=== PATIENT | male | born 1945 | race Caucasian/White ===

== ENCOUNTER 2024-04-24 13:56 | Emergency (ER) | payer OTHER ==
[~2024-04-24 13:56] MED LIST: Iopamidol 370 76% 100 ML VIAL ONE
[2024-04-24] MEDS ORDERED: Ipratropium/Albuterol 3 ML NEB ONE ×2 (14:41→16:16)
[2024-04-24] MEDS ORDERED: Sodium Chloride 0.9% 1,000 ML ONE (14:57)
[2024-04-24 15:07] LABS: ALT (SGPT) 27 U/L (8-55); AST (SGOT) 22 U/L (5-34); Albumin 3.5 g/dL (3.4-4.8); Alkaline Phosphatase 90 U/L (40-110); Anion Gap 15 mmol/L (10-20); BUN (Urea Nitrogen) 23 mg/dL (8.4-25.7); Bilirubin, Total 2.8 mg/dL (0.2-1.2); Calc. Creatinine Clearance 0 mL/min (70-130); Carbon Dioxide 31 mmol/L (23-31); Chloride 93 mmol/L (98-107); Estimated GFR 59; Globulin 3.3 g/dL (2.4-3.5); Glucose 119 mg/dL (83-110); Potassium 4.1 mmol/L (3.5-5.1); Protein, Total 6.8 g/dL (5.8-8.1); Sodium 135 mmol/L (136-145)
[2024-04-24 15:33] LABS: Hematocrit 48.4 % (42.0-52.0); Hemoglobin 15.4 g/dL (14.0-18.0); Mean Corpuscular HGB CONC 31.7 g/dL (32.0-36.0); Mean Corpuscular Hemoglobin 28.4 pg (27.0-31.0); Mean Corpuscular Volume 89.4 fl (78.0-98.0); Mean Platelet Volume 15.8 fL (7.4-10.4); Platelet Count 42 10x3/uL (130-400); RBC Distribution Width 13.5 % (11.5-14.5); Red Blood Cell (RBC) Count 5.42 mill/uL (4.70-6.10)
[2024-04-24 15:43] LABS: Base Excess-Venous 9.1 mmol/L (-2.0 to 3.0); Bicarbonate (HCO3v) 38.1 mmol/L (22.0-28.0); CO2 Tension (PvCO2) 67.5 mmHg (42.0-51.0); Calcium, Ionized 1.11 mmol/L (1.15-1.33); Chloride 93 mmol/L (98-107); Hemoglobin - Calc 16.9 g/dL (14.0-18.0); Potassium 4.2 mmol/L (3.5-5.1); Sodium 137 mmol/L (138-145); T. Carbon Dioxide 40.1 mmol/L (22.0-28.0); vO2 Saturation-calc 82.4 % (60.0-85.0)
[2024-04-24 15:48] LABS: White Blood Cell (WBC) Count 29.5 10x3/uL (4.8-10.8)
[2024-04-24] MEDS ORDERED: Sodium Chloride 0.9% 100 ML ONE (15:52)
[2024-04-24] MEDS ORDERED: Cefepime 2 GM VIAL ONE (15:52)
[2024-04-24 15:53] LABS: MDiff Complete? YES
[2024-04-24 16:35] LABS: Band 18 % (5-11); Lymphocytes 5 % (21-51); Monocytes 1 % (0-10); Neutrophil 76 % (42-75)
[2024-04-24] MEDS ORDERED: LevoFLOXacin 750 mg/D5W 150 ml Premix Bag ONE (16:36)
[2024-04-24 16:37] LABS: Platelet Adequacy Comment PLT clumps seen-ADEQ; Platelet Clumps MODERATE; RBC Morph Comment Within Normal Limits
[2024-04-24] MEDS ORDERED: dilTIAZem 60 MG TAB ONE (16:55)
[2024-04-24 17:05] LABS: Bilirubin Moderate (Negative); Blood, Urine Negative (Negative); Clarity Clear (Clear); Glucose, Urine (Dipstick) Negative (Negative); Ketone, Urine Trace mg/dL (Negative); Leukocyte Negative (Negative); Nitrite Positive (Negative); Protein, Urine (Dipstick) 30 mg/dL (Neg-Trace); Specific Gravity, Urine 1.015 (1.005-1.030); pH, Urine 5.5 (5.0-9.0)
[2024-04-24 17:24] LABS: CAUTI Indications for Culture Fever or rigors
[2024-04-24 17:25] LABS: Bacteria/HPF 2+ HPF (None Seen); Mucous/LPF 2+ LPF (<2+); Squamous Epithelial 0-3 HPF (0-3); Transitional Epithelial 0-3 HPF (None Seen)
[2024-04-24 17:26] LABS: Urine Culture Reflex No No
[2024-04-24 17:46] LABS: Base Excess-Venous 4.7 mmol/L (-2.0 to 3.0); Bicarbonate (HCO3v) 31.9 mmol/L (22.0-28.0); CO2 Tension (PvCO2) 56.2 mmHg (42.0-51.0); Calcium, Ionized 1.05 mmol/L (1.15-1.33); Chloride 94 mmol/L (98-107); Hemoglobin - Calc 15.1 g/dL (14.0-18.0); Potassium 4.1 mmol/L (3.5-5.1); Sodium 134 mmol/L (138-145); T. Carbon Dioxide 33.6 mmol/L (22.0-28.0); vO2 Saturation-calc 84.5 % (60.0-85.0)
== END 2024-04-24 21:15 | disposition short-term general hospital (02) ==
LOC: NAV ERS 13:56
DX: J18.9 Pneumonia, unspecified organism (principal); J44.1 Chronic obstructive pulmonary disease with (acute) exacerbation; J10.1 Influenza due to other identified influenza virus with other respiratory manifestations; M79.89 Other specified soft tissue disorders; R91.8 Other nonspecific abnormal finding of lung field; E11.9 Type 2 diabetes mellitus without complications; E78.00 Pure hypercholesterolemia, unspecified; I11.0 Hypertensive heart disease with heart failure; I50.9 Heart failure, unspecified; I48.91 Unspecified atrial fibrillation; Z79.01 Long term (current) use of anticoagulants; Z79.899 Other long term (current) drug therapy
CPT/HCPCS: 36415; 71045; 71275; 80053; 81001; 82330; 82803; 83605; 83880; 85025; 85379; 87040; 87070; 87077; 87149; 87205; 87428; 93005; 94640; 96361; 96365; 96367; J0692; J1956; J7030; J7620; Q9967